=== PATIENT | female | born 1995 | race Caucasian/White ===

== ENCOUNTER 2017-06-17 01:57 | Emergency (ER) | payer SELFPAY ==
[2017-06-17] MEDS ORDERED: ONDANSETRON 4 MG/2 ML VIAL IVP ONE (02:30)
[2017-06-17] MEDS ORDERED: NS(*) 0.9% 1000 ML BAG 1,000 ML IV ONE (02:30)
[2017-06-17 02:48] LABS: PLATELET COUNT, AUTOMATED 163 K/uL (150-450)
[2017-06-17] MEDS ORDERED: LORazepam 2 MG/ML VIAL IVP ONE ×2 (02:50→10:15)
--- NOTE | 2017-06-17 03:50 | RADIOLOGY IMAGING REPORT ---
FACILITY: [facility] PATIENT NAME: Adriana Johnson : 05/18/1994 MR: [id number] V: [id number] EXAM DATE: ORDERING PHYSICIAN: RUFUS BRIGGS TECHNOLOGIST: Location: [facility] Patient: Adriana Johnson : 05/18/1994 Visit/Account:[id number] Date of Sevice: 06/17/2017 CHEST SINGLE AP 06/17/2017 02:27 hours. HISTORY: Altered mental status. Patient's boyfriend states she had a cough and fever for one day and vomited before bed. Woke up altered. Dilated pupils. COMPARISON: None. TECHNIQUE: Portable AP supine view of the chest. FINDINGS: Tubes/lines/hardware: There are external chest leads. Pulmonary: Lungs are clear. There is no pneumothorax or pleural effusion. Cardiomediastinal: Cardiac and mediastinal silhouettes are within normal limits. Bones/soft tissues: No acute osseous abnormality. The visible abdomen is normal. IMPRESSION: 1. No acute cardiopulmonary process. Report Dictated By: Kiana Landa at 06/17/2017 3:45 AM Report E-Signed By: Kiana Landa at 06/17/2017 3:46 AM WSN:[id number]
--- NOTE | 2017-06-17 03:50 | RADIOLOGY IMAGING REPORT ---
FACILITY: [facility] [place] PATIENT NAME: Adriana Johnson : 05/18/1994 MR: [id number] V: [id number] EXAM DATE: ORDERING PHYSICIAN: RUFUS BRIGGS TECHNOLOGIST: Location: [facility] Patient: Adriana Johnson : 05/18/1994 Visit/Account:[id number] Date of Sevice: 06/17/2017 HEAD W/O CONTRAST HISTORY: Altered mental status. Patient's boyfriend states she had a cough and fever for one day and vomited before bed. Woke up with altered mental status. Dilated pupils. COMPARISON: None. TECHNIQUE: Axial images were obtained from the skull base to the vertex without contrast. Sagittal an d coronal reformats were performed. One of the following dose optimization techniques was utilized in the performance of this exam: Autom ated exposure control; adjustment of the mA and/or kV according to the patient's size; or use of an i terative reconstruction technique. Specific details can be referenced in the facility's radiology CT exam operational policy. CONTRAST: None. FINDINGS: There is mild motion on some of the images despite patient being restrained and medicated f or the examination. Brain: No intracranial hemorrhage, mass or edema. Ventricles and sulci: Sulci are normal. Ventricular size and configuration is normal. Osseous structures: Intact. Sinuses and mastoids: There is minimal mucosal thickening of the ethmoid sinuses. The nasal septum sandra ws slightly toward the right, and the nose angles to the left. Orbits and soft tissues: Normal. IMPRESSION: 1. No acute intracranial abnormality. Report Dictated By: Kiana Landa at 06/17/2017 3:38 AM Report E-Signed By: Kiana Landa at 06/17/2017 3:45 AM WSN:[id number]
--- NOTE | 2017-06-17 05:01 | EKG ---
FAC[place]: [facility] [place]IENT NAME: AMRIK MOORE : [id number] MR: [id number] V: [id number] EXAM DATE: ORDERING PHYSICIAN: RUFUS BRIGGS TECHNOLOGIST: REMY Test Reason : TOX INGESTION Blood Pressure : / mmHG Vent. Rate : 094 BPM Atrial Rate : 094 BPM P-R Int : 136 ms QRS Dur : 076 ms QT Int : 352 ms P-R-T Axes : 085 106 050 degrees QTc Int : 440 ms Sinus rhythm Possible biatrial enlargement Poor R wave progression through anterior leads Nonspecific T wave flattening Abnormal ECG No previous ECGs available Confirmed by VIVIEN CARNEY ([id number]) on 06/17/2017 4:01:04 PM Referred By: Confirmed By:VIVIEN CARNEY
--- NOTE | 2017-06-17 06:34 | ER Report ---
History and Physical Time Seen By MD: 02:00 Hx. of Stated Complaint: PT ARRIVED PER EMS UNRESPONSIVE. HPI/ROS 23-year-old female arrives unresponsive by EMS who suspected possible postictal state however no seizure activity clearly witnessed. She is nonverbal making only guttural utterances and nonresponsive to questions or commands. Limited exam. Per best friend who is present she was normal before she went to bed 2. Two-hour nap woke up and vomited he gave her some Tylenol and the amount of 1 g that she went to bed shortly after approximately one hour later he went to check on her and noticed she was abnormal and called 911. Upon arrival she had blurred pupils that were minimally reactive. There is no seizure activity. She is moving all 4 extremities spontaneously rolling around in the bed and occasionally moaning. She will not answer questions or follow commands. Per her friend she has never been known to use drugs or toxic substances. Per friend/ roommate she is always quite stressed with school and tends to be high stress in general however she seemed less stress than usual recently and has never been suicidal. Per EMS no drug paraphernalia suspicious scene was present. 2 mg of Ativan was given by EMS prior to arrival. Allergies: Coded Allergies: UNABLE TO OBTAIN (Unverified , 06/17/17) Home Meds Unable to Obtain Active Prescriptions or Reported Meds Unable To Obtain Past Medical: Unable to Obtain/Update Constitutional Vital Sign - Last 24 Hours 06/17/17 06/17/17 06/17/17 06/17/17 02:00 02:10 02:20 02:28 Pulse 94 96 ??? B/P (MAP) 102/69 Pulse Ox 97 94 96 O2 Flow Rate 2.0 06/17/17 06/17/17 06/17/17 06/17/17 02:30 02:40 02:50 03:00 Pulse 96 83 99 B/P (MAP) 93/78 (83) 86/81 (83) Pulse Ox 92 91 92 06/17/17 06/17/17 06/17/17 06/17/17 03:10 03:20 03:40 03:50 Pulse ? 90 73 Pulse Ox 95 95 96 06/17/17 06/17/17 06/17/17 06/17/17 04:00 04:02 04:10 04:20 Pulse 106 95 B/P (MAP) 96/62 (73) 115/99 (104) Pulse Ox 94 94 06/17/17 06/17/17 06/17/17 06/17/17 04:30 04:40 04:50 05:00 Pulse 103 104 92 86 B/P (MAP) 110/95 (100) 86/61 (69) Pulse Ox 86 85 86 74 06/17/17 06/17/17 06/17/17 05:10 05:17 05:20 Pulse 90 93 B/P (MAP) 104/94 (97) Pulse Ox 88 Physical Exam General Appearance: Unresponsive no discernible words produced, moaning, occasionally moving all 4 extremities on the bed and rolling on the bed. Eyes: Rolled up, pupils 7 mm and not reactive to light. ENT, Mouth: Mucous membranes are moist. Respiratory: There are no retractions, lungs are clear to auscultation. Cardiovascular: Regular rate and rhythm. No murmurs gallops or rubs Gastrointestinal: Abdomen is soft and non tender, no masses, bowel sounds normal. Neurological: Unresponsive, no seizure activity, moving all 4 extremities, not following exam, no responding to commands Skin: Warm and dry, no rashes. Musculoskeletal: Neck is supple non tender. Extremities are nontender, nonswollen and have full range of motion. No edema DIFFERENTIAL DIAGNOSIS: After history and physical exam differential diagnosis was considered for occult toxic ingestion, influenza, sepsis, UTI,, head trauma. No fever to suggest meningitis or encephalitis. Seizure disorder, occult. Stroke or other intracranial disease Medical Decision Making Data Points Result Diagram: 06/17/17 0200 06/17/17 0200 Laboratory Hematology Test 06/17/17 02:00 06/17/17 04:16 06/17/17 06:17 Red Blood Count 5.10 M/uL (4.17-5.56) Mean Corpuscular Volume 90.4 fL (80.0-96.0) Mean Corpuscular Hemoglobin 31.2 pg (26.0-33.0) Mean Corpuscular Hemoglobin Concent 34.5 g/dL (32.0-36.0) Red Cell Distribution Width 12.4 % (11.5-14.5) Mean Platelet Volume 8.3 fL (7.2-11.1) Neutrophils (%) (Auto) 54.9 % (39.4-72.5) Lymphocytes (%) (Auto) 30.7 % (17.6-49.6) Monocytes (%) (Auto) 13.6 % (4.1-12.4) Eosinophils (%) (Auto) 0.1 % (0.4-6.7) Basophils (%) (Auto) 0.7 % (0.3-1.4) Nucleated RBC Relative Count (auto) 0.1 /100WBC Neutrophils # (Auto) 3.1 K/uL (2.0-7.4) Lymphocytes # (Auto) 1.7 K/uL (1.3-3.6) Monocytes # (Auto) 0.8 K/uL (0.3-1.0) Eosinophils # (Auto) 0.0 K/uL (0.0-0.5) Basophils # (Auto) 0.0 K/uL (0.0-0.1) Nucleated RBC Absolute Count (auto) 0.01 K/uL Urine Color Yellow Urine Clarity Cloudy Urine pH 5.0 pH (4.8-9.5) Urine Specific [place] 1.018 Urine Protein Negative mg/dL (NEGATIVE) Urine Glucose (UA) Negative mg/dL (NEGATIVE) Urine Ketones Negative mg/dL (NEGATIVE) Urine Blood Negative (NEGATIVE) Urine Nitrite Negative (NEGATIVE) Urine Bilirubin Negative (NEGATIVE) Urine Urobilinogen Negative mg/dL (0.2-1.9) Urine Leukocyte Esterase Small (NEGATIVE) Urine RBC 1 /HPF (0-2/HPF) Urine WBC 6 /HPF (0-5/HPF) Urine Squamous Epithelial Cells Many /LPF (NONE-FEW) Urine Bacteria Few /HPF (NONE-FEW) Urine Mucus None /HPF (NONE-FEW) Sodium Level 136 mmol/L (137-145) Potassium Level 3.4 mmol/L (3.5-5.0) Chloride Level 98 mmol/L (98-107) Carbon Dioxide Level 26 mmol/L (22-31) Blood Urea Nitrogen 11 mg/dl (7-18) Creatinine 0.70 mg/dl (0.52-1.04) Glomerular Filtration Rate Calc > 60.0 Random Glucose 128 mg/dl (75-110) Calcium Level 9.0 mg/dl (8.4-10.2) Total Bilirubin 0.6 mg/dl (0.2-1.3) Aspartate Amino Transf (AST/SGOT) 37 U/L (0-35) Alanine Aminotransferase (ALT/SGPT) 30 U/L (0-56) Alkaline Phosphatase 60 U/L (0-126) Troponin I < 0.012 ng/ml Total Protein 8.2 gm/dl (6.3-8.2) Albumin 4.3 g/dl (3.5-5.0) Lipase 111 U/L (23-300) Human Chorionic Gonadotropin, Qual Negative (NEGATIVE) Salicylates Level < 10 mg/L Salicylate Last Dose Date unkn Urine Opiates Screen Negative Acetaminophen Level 15 ug/ml Urine Barbiturates Screen Negative Ur Tricyclic Antidepressants Screen Negative Urine Phencyclidine Screen Negative Urine Amphetamines Screen Negative Urine Benzodiazepines Screen Negative Urine Cocaine Screen Negative Urine Cannabinoids Screen Negative Serum Alcohol < 10 mg/dl Chemistry Test 06/17/17 02:00 06/17/17 04:16 06/17/17 06:17 White Blood Count 5.6 k/uL (4.5-11.0) Red Blood Count 5.10 M/uL (4.17-5.56) Hemoglobin 15.9 g/dL (12.0-16.0) Hematocrit 46.1 % (34.0-47.0) Mean Corpuscular Volume 90.4 fL (80.0-96.0) Mean Corpuscular Hemoglobin 31.2 pg (26.0-33.0) Mean Corpuscular Hemoglobin Concent 34.5 g/dL (32.0-36.0) Red Cell Distribution Width 12.4 % (11.5-14.5) Platelet Count 163 K/uL (150-450) Mean Platelet Volume 8.3 fL (7.2-11.1) Neutrophils (%) (Auto) 54.9 % (39.4-72.5) Lymphocytes (%) (Auto) 30.7 % (17.6-49.6) Monocytes (%) (Auto) 13.6 % (4.1-12.4) Eosinophils (%) (Auto) 0.1 % (0.4-6.7) Basophils (%) (Auto) 0.7 % (0.3-1.4) Nucleated RBC Relative Count (auto) 0.1 /100WBC Neutrophils # (Auto) 3.1 K/uL (2.0-7.4) Lymphocytes # (Auto) 1.7 K/uL (1.3-3.6) Monocytes # (Auto) 0.8 K/uL (0.3-1.0) Eosinophils # (Auto) 0.0 K/uL (0.0-0.5) Basophils # (Auto) 0.0 K/uL (0.0-0.1) Nucleated RBC Absolute Count (auto) 0.01 K/uL Urine Color Yellow Urine Clarity Cloudy Urine pH 5.0 pH (4.8-9.5) Urine Specific [place] 1.018 Urine Protein Negative mg/dL (NEGATIVE) Urine Glucose (UA) Negative mg/dL (NEGATIVE) Urine Ketones Negative mg/dL (NEGATIVE) Urine Blood Negative (NEGATIVE) Urine Nitrite Negative (NEGATIVE) Urine Bilirubin Negative (NEGATIVE) Urine Urobilinogen Negative mg/dL (0.2-1.9) Urine Leukocyte Esterase Small (NEGATIVE) Urine RBC 1 /HPF (0-2/HPF) Urine WBC 6 /HPF (0-5/HPF) Urine Squamous Epithelial Cells Many /LPF (NONE-FEW) Urine Bacteria Few /HPF (NONE-FEW) Urine Mucus None /HPF (NONE-FEW) Glomerular Filtration Rate Calc > 60.0 Calcium Level 9.0 mg/dl (8.4-10.2) Total Bilirubin 0.6 mg/dl (0.2-1.3) Aspartate Amino Transf (AST/SGOT) 37 U/L (0-35) Alanine Aminotransferase (ALT/SGPT) 30 U/L (0-56) Alkaline Phosphatase 60 U/L (0-126) Troponin I < 0.012 ng/ml Total Protein 8.2 gm/dl (6.3-8.2) Albumin 4.3 g/dl (3.5-5.0) Lipase 111 U/L (23-300) Human Chorionic Gonadotropin, Qual Negative (NEGATIVE) Salicylates Level < 10 mg/L Salicylate Last Dose Date unkn Urine Opiates Screen Negative Acetaminophen Level 15 ug/ml Urine Barbiturates Screen Negative Ur Tricyclic Antidepressants Screen Negative Urine Phencyclidine Screen Negative Urine Amphetamines Screen Negative Urine Benzodiazepines Screen Negative Urine Cocaine Screen Negative Urine Cannabinoids Screen Negative Serum Alcohol < 10 mg/dl Toxicology Test 06/17/17 02:00 Salicylates Level < 10 mg/L Salicylate Last Dose Date unkn Urine Opiates Screen Negative Acetaminophen Level 15 ug/ml Urine Barbiturates Screen Negative Ur Tricyclic Antidepressants Screen Negative Urine Phencyclidine Screen Negative Urine Amphetamines Screen Negative Urine Benzodiazepines Screen Negative Urine Cocaine Screen Negative Urine Cannabinoids Screen Negative Serum Alcohol < 10 mg/dl Urinalysis Test 06/17/17 02:00 Urine Color Yellow Urine Clarity Cloudy Urine pH 5.0 pH (4.8-9.5) Urine Specific [place] 1.018 Urine Protein Negative mg/dL (NEGATIVE) Urine Glucose (UA) Negative mg/dL (NEGATIVE) Urine Ketones Negative mg/dL (NEGATIVE) Urine Blood Negative (NEGATIVE) Urine Nitrite Negative (NEGATIVE) Urine Bilirubin Negative (NEGATIVE) Urine Urobilinogen Negative mg/dL (0.2-1.9) Urine Leukocyte Esterase Small (NEGATIVE) Urine RBC 1 /HPF (0-2/HPF) Urine WBC 6 /HPF (0-5/HPF) Urine Squamous Epithelial Cells Many /LPF (NONE-FEW) Urine Bacteria Few /HPF (NONE-FEW) Urine Mucus None /HPF (NONE-FEW) ED Course/Re-evaluation ED Course 2 mg of Ativan was given to get her comfortable for CT scan of her head. She has been unable to consent to any studies or procedures. She's been able unable to provide any collateral information to reach family. She will be going to ICU for further monitoring and care. Case was discussed with who accepts the patient and agrees with plan. Decision to Disposition Date: Jun 17, 2017 Decision to Disposition Time: 06:43 Depart Departure Latest Vital Signs Vital Signs Date Time Temp Pulse Resp B/P (MAP) Pulse Ox O2 Delivery O2 Flow Rate FiO2 06/17/17 05:20 93 06/17/17 05:17 104/94 (97) 06/17/17 05:10 88 06/17/17 02:28 2.0 Impression: Primary Impression: Altered mental state Additional Impression: Unknown cause of injury Condition: Condition Unchanged Disposition: Admitted from ER New Scripts Unable to Obtain Active Prescriptions or Reported Meds Problem Qualifiers RUFUS BRIGGS MD Jun 17, 2017 06:34
[2017-06-17] MEDS ORDERED: MIDAZOLAM 1 MG/1 ML 10 ML IVP ONE (07:25)
[2017-06-17] MEDS ORDERED: MIDAZOLAM 2 MG/2 ML VIAL IVP ONE (07:25)
[2017-06-17] MEDS ORDERED: KETAMINE HCL 500 MG/5 ML VIAL ONE (08:41)
[2017-06-17] MEDS ORDERED: PROPOFOL(*)1000 MG/100 ML VIAL 100 ML IV PRN (08:55)
[2017-06-17] MEDS ORDERED: PROPOFOL EMUL 10MG/ML 20 ML VL IV ONE (08:55)
[2017-06-17] MEDS ORDERED: LORazepam 2 MG/ML VIAL ONE ×3 (09:06→10:06)
[2017-06-17] MEDS ORDERED: FOSPHENYTOIN(*) 500 MG/10 ML V 1,000 MG in NS(*) 0.9% 100 ML BAG 80 ML IVPB ONE (09:10)
--- NOTE | 2017-06-17 09:15 | RADIOLOGY IMAGING REPORT ---
FACILITY: [facility] PATIENT NAME: Adriana Johnson : 05/18/1994 MR: [id number] V: [id number] EXAM DATE: ORDERING PHYSICIAN: MAURIZIO BAUM TECHNOLOGIST: Location: [facility] [place] Patient: Adriana Johnson : 05/18/1994 Visit/Account:[id number] Date of Sevice: 06/17/2017 Single view of the chest Indication: Intubation. Comparison: X-ray examination chest June 17, 2017 Findings: Heart size within normal limits. Lungs are without new focal infiltrate or consolidation. There is a new endotracheal tube in the mid line distal trachea approximately 2.1 cm from the mely. This should be retracted 1 cm. IMPRESSION: 1. Endotracheal tube is in the midline thoracic trachea approximately 2 cm from the mely. Suggest retraction of 1 cm. Report Dictated By: Jaime Flower MD at 06/17/2017 9:09 AM Report E-Signed By: Jaime Flower MD at 06/17/2017 9:11 AM WSN:[id number]
[2017-06-17] MEDS ORDERED: OSELTAMIVIR PHOS 6 MG/1 ML BTL PO ONE (09:35)
[2017-06-17] MEDS ORDERED: CEFEPIME HCL 2 GM VIAL IVP ONE (09:35)
[2017-06-17] MEDS ORDERED: VANCOMYCIN(*) 1 GM VIAL 2 GM in NS(*) 0.9% 250 ML BAG 250 ML IVPB ONE (09:35)
[2017-06-17] MEDS ORDERED: ACETAMINOPHEN 650 MG SUPP PR ONE (09:45)
--- NOTE | 2017-06-17 09:58 | RADIOLOGY IMAGING REPORT ---
FACILITY: [facility] - [place] PATIENT NAME: Adriana Johnson : 1995 MR: [id number] V: [id number] EXAM DATE: ORDERING PHYSICIAN: MAURIZIO BAUM TECHNOLOGIST: [place] [facility] [place] Adriana Johnson : 1995 Visit/Account:[id number] Date of Sevice: 06/17/2017 EXAMINATION: Head CT without intravenous contrast HISTORY: Decerebrate posturing. TECHNIQUE: Axial images were obtained from the skull base to the vertex without intravenous contrast . Sagittal and coronal reformatted images are also submitted. One of the following dose optimization techniques was utilized in the performance of this exam: Autom ated exposure control; adjustment of the mA and/or kV according to the patient's size; or use of an i terative reconstruction technique. Specific details can be referenced in the facility's radiology C T exam operational policy. COMPARISON: Noncontrast head CT dated 06/17/2017 3:23 AM. FINDINGS: Brain volume: Normal. Ventricles: Negative. Acute ischemic changes: None. Hemorrhage: None. Masses / edema: None. Greene-white: Negative. White matter: Negative. Vessels: Negative. Extra-axial: Negative. Calvarium / skull base: Negative. Visualized sinuses / orbits: Rightward nasal septal deviation. Stable minimal mucosal thickening in the ethmoid air cells. IMPRESSION: No acute intracranial abnormality. Report Dictated By: Carlos Nair MD at 06/17/2017 9:48 AM Report E-Signed By: Carlos Nair MD at 06/17/2017 9:55 AM WSN:[id number]
[2017-06-17] MEDS ORDERED: PROPOFOL(*)1000 MG/100 ML VIAL 100 ML ONE (10:00)
[2017-06-17 10:05] VITALS: BP 110/56
[2017-06-17] MEDS ORDERED: fentaNYL CITR 100 MCG/2 ML AMP IVP ONE (10:15)
[2017-06-17] MEDS ORDERED: SUCCINYLCHOL CHL 200MG/10ML VL IVP ONE (10:35)
== END 2017-06-17 10:15 | disposition short-term general hospital (02) ==
LOC: ER 02:00 → EDBD 08:13 → ICU 08:13 → UNDOADMIN 08:13
DX: J11.1 Influenza due to unidentified influenza virus with other respiratory manifestations (principal); R65.10 Systemic inflammatory response syndrome (SIRS) of non-infectious origin without acute organ dysfunction
CPT/HCPCS: 31500; 36415; 36600; 62270; 70450; 71045; 80305; 80320; 80329; 81001; 82803; 82945; 83605; 83690; 84157; 84443; 84484; 84703; 85025; 86592; 87070; 87205; 87327; 87502; 87529; 87899; 89050; 93005; 94002; 96361; 96365; 96368; 96375; 96376; 99285; A4353; J0330; J2060; J2250; J2704; J3010; J3370; J7030; J7050; Q2009; 82040; 82247; 82310; 82374; 82435; 82565; 82947; 84075; 84132; 84155; 84295; 84450; 84460; 84520

== ENCOUNTER → 2017-06-17 | Outpatient (CLI) | payer SELFPAY | LOC: AMB 01:35 | PROVIDERS: ATTEND Nurse Practitioner | DX: R06.82 Tachypnea, not elsewhere classified (principal); R56.9 Unspecified convulsions; R09.02 Hypoxemia; R53.1 Weakness | CPT/HCPCS: A0425; A0427 ==

== ENCOUNTER → 2017-06-17 | Outpatient (REF) | LOC: AMB 09:20 | PROVIDERS: ATTEND Nurse Practitioner | DX: Z02.9 Encounter for administrative examinations, unspecified (principal) ==